=== PATIENT | male | born 1970 | race Caucasian/White ===

== ENCOUNTER 2021-02-05 11:31 | Emergency (ER) | payer MEDICARE ==
[~2021-02-05 11:31] MED LIST: ADVIL200 MG PO; ALBUTEROL2.5 MG/3 M INH; ARTHRITIS PAIN650 M2 PO; AUGMENTIN 875-1 EACH PO; BACTRIM DS TAB1 EACH PO; BACTROBAN OINT22 GM EXT; BUPROPION XL150 MG PO; CLEOCIN HCL300 MG PO; GOODY'S EX-STR1 EAC1 PO; KETOROLAC TROME10 MG PO; LEVAQUIN500 MG PO; PRINIVIL20 MG PO; PROAIR HFA8.5 GM INH; VITAMIN D 40400 UNIT PO
[2021-02-05 13:29] LABS: HEMOGLOBIN 15.3 gm/dl (14.0-17.5); RED BLOOD COUNT 4.47 M/UL (4.20-5.50); WHITE BLOOD COUNT 4.1 K/UL (4.5-11.0)
[2021-02-05 13:46] LABS: BUN/CREATININE RATIO 12 (0-10)
[2021-02-05] MEDS ORDERED: LIBRIUM CAP 2525 MG PO (17:05)
== END 2021-02-05 18:24 | disposition home or self-care (01) ==
LOC: ER1 11:31
PROVIDERS: Emergency Medicine
DX: F10.231 Alcohol dependence with withdrawal delirium (principal); Y90.9 Presence of alcohol in blood, level not specified; J44.9 Chronic obstructive pulmonary disease, unspecified; I10 Essential (primary) hypertension
CPT/HCPCS: 70450; 80053; 85025; 93005; 96374; 99284; J3360

== ENCOUNTER 2021-02-06 20:12 | Emergency (ER) | payer MEDICARE ==
[~2021-02-06 20:12] MED LIST changes: +LIBRIUM CAP 2525 MG PO
== END 2021-02-07 02:00 | disposition home or self-care (01) ==
LOC: ER1 20:12
DX: S61.512A Laceration without foreign body of left wrist, initial encounter (principal); F10.10 Alcohol abuse, uncomplicated; J44.9 Chronic obstructive pulmonary disease, unspecified; I10 Essential (primary) hypertension; F17.200 Nicotine dependence, unspecified, uncomplicated; X78.9XXA Intentional self-harm by unspecified sharp object, initial encounter; Z88.5 Allergy status to narcotic agent
CPT/HCPCS: 12002; 99284